=== PATIENT | female | born 1990 | race Hispanic/Latino ===

== ENCOUNTER 2016-09-28 19:57 | Emergency (ER) | payer OTHER ==
[2016-09-28] MEDS ORDERED: EPINEPHrine 1 MG/ML VIAL ONE (20:39)
[2016-09-28] MEDS ORDERED: diphenhydrAMINE HCl 50 MG/ML 1 ML VIAL ONE (20:39)
[2016-09-28] MEDS ORDERED: Dexamethasone 4 mg/ml Vial ONE (20:39)
== END 2016-09-28 21:46 | disposition home or self-care (01) ==
LOC: NAV ERS 19:57
DX: T63.441A Toxic effect of venom of bees, accidental (unintentional), initial encounter (principal); M79.89 Other specified soft tissue disorders; M54.9 Dorsalgia, unspecified; G89.29 Other chronic pain; F17.200 Nicotine dependence, unspecified, uncomplicated
CPT/HCPCS: 96372; 96374; 96375; J0171; J1100; J1200